=== PATIENT | female | born 1985 | race Caucasian/White ===

== ENCOUNTER 2020-08-21 18:40 | Emergency (ER) | payer OTHER ==
[~2020-08-21] VITALS: Wt 108.9 kg
== END 2020-08-21 22:17 | disposition home or self-care (01) ==
LOC: ED 18:40
DX: S16.1XXA Strain of muscle, fascia and tendon at neck level, initial encounter (principal); S39.012A Strain of muscle, fascia and tendon of lower back, initial encounter; S80.212A Abrasion, left knee, initial encounter; Z88.2 Allergy status to sulfonamides; Z88.8 Allergy status to other drugs, medicaments and biological substances; V49.9XXA Car occupant (driver) (passenger) injured in unspecified traffic accident, initial encounter; Y93.89 Activity, other specified; Y92.89 Other specified places as the place of occurrence of the external cause; Y99.8 Other external cause status

== ENCOUNTER 2020-08-30 17:58 | Emergency (ER) | payer OTHER ==
[~2020-08-30] VITALS: Ht 157.4 cm; Wt 102.1 kg
== END 2020-08-30 21:31 | disposition home or self-care (01) ==
LOC: ED 17:58
DX: M79.672 Pain in left foot (principal); Z88.8 Allergy status to other drugs, medicaments and biological substances; Z88.2 Allergy status to sulfonamides